=== PATIENT | male | born 1945 | race Caucasian/White ===

== ENCOUNTER 2016-10-28 20:05 | Emergency (ER) | payer MEDICARE, MEDICAID ==
[~2016-10-28] VITALS: Ht 182.9 cm; Wt 68.0 kg
[~2016-10-28 20:05] MED LIST: BACT800T5 PO; CARB25TA PO; OMEP20TA39 PO; RIVA13.3 TOPICAL; SERO25TA PO; THERTAB41; TRUSMIS52
[2016-10-28 20:12] VITALS: PULSE 67; RESP 16; O2SAT 98
[2016-10-28 20:20] VITALS: TEMP 97.8
[2016-10-28] MEDS ORDERED: SODIUM CHLOR 0.9% 1000 ML INJ 1,000 ML IV SCH (20:23)
[2016-10-28 20:26] VITALS: BP 130/77; RESP 14; O2SAT 97
[2016-10-28] MEDS ORDERED: SODIUM CHLORIDE 0.9% FLUSH 10 ML FLUSH IV FLUSH PRN (20:30)
[2016-10-28] MEDS ORDERED: PANTOPRAZOLE SODIUM 40 MG VIAL IVP ONE (20:30)
[2016-10-28] MEDS ORDERED: ONDANSETRON HCL 4 MG/2 ML VIAL IVP ONE (20:30)
--- NOTE | 2016-10-28 20:33 | PD ---
HPI Chief Complaint: GI Complaint Time Seen by Provider: 20:30 Travel History International Travel<30 days: No Contact w/Intl Traveler<30days: No Traveled to known affect area: No History of Present Illness HPI 71-year-old male presents to the ED via EMS from his [facility] with complaint of a single episode of dark, stringy emesis today. He is confused at baseline. On presentation he endorses mild upper abdominal pain. He denies nausea, fever, cough. His arrives and states that the patient "had a bad week this week." She states that he has been slowly declining. She states that she assessed the patient with meals every day except Saturday. She states during the course of the week he was leaning over and drooling, not eating very much. However she states that yesterday she took a meal from [employer] and he was able to eat the whole thing. He states that he recently began antibiotics and Robitussin for a chronic cough. She states that he is unable to take Robitussin and she wonders if maybe this was the cause of the vomiting today. PFSH Past Medical History Anxiety: Yes Depression: Yes Heart Rhythm Problems: Yes (BRADYCARDIA) Cancer: No Cardiovascular Problems: No Diminished Hearing: No Endocrine: No GERD: Yes Genitourinary: Yes (URI) Immune Disorder: No Kidney Stones: Yes Musculoskeletal: No Neurologic: Yes (ALZHEIMER'S) Parkinson's Disease: Yes Psychiatric: Yes (PSYCHOTIC DISORDER WITH DELUSIONS) Respiratory: No Past Surgical History Abdominal Surgery: No Cardiac Surgery: No Endocrine Surgery: No Eye Surgery: No Genitourinary Surgery: No Gynecologic Surgery: No Thoracic Surgery: No Social History Alcohol Use: No Tobacco Use: No Substance Use: No Allergies-Medications (Allergen,Severity, Reaction): Coded Allergies: Adderall (Verified Allergy, Intermediate, 10/28/16) Penicillin (Verified Allergy, Intermediate, 10/28/16) Requip (Verified Allergy, Intermediate, 10/28/16) Risperdal (Verified Allergy, Intermediate, 10/28/16) Reported Meds & Prescriptions Reported Meds & Active Scripts Active Protonix (Pantoprazole Sodium) 40 Mg Tab 40 Mg PO DAILY Bactrim DS (Sulfamethoxazole-Trimethoprim DS) 1 Tab Tab 1 Tab PO BID 7 Days Seroquel 25 mg (Quetiapine Fumarate) 25 Mg Tab 25 Mg PO QHS 30 Days Sinemet 25/100 (Carbidopa/Levodopa) 25 Mg/100 Mg Tab 1.5 Tab PO 5 TIMES A DAY 30 Days Trusheer Stockings 20-30M (Elastic Bandages & Supports) Stocking Mis Pack Reported Thermotabs (Oral Electrolytes) Tab Exelon Patch (Rivastigmine) 13.3 mg/24 hrs Patch 13.3 Mg TOPICAL DAILY Hm Omeprazole (Omeprazole) 20 Mg Tab 20 Mg PO DAILY Review of Systems Except as stated in HPI: all other systems reviewed are Neg Physical Exam Narrative GENERAL: Well-nourished, well-developed, thin, chronically ill appearing white male in no acute distress. SKIN: Focused skin assessment warm/dry. HEAD: Normocephalic. Atraumatic. EYES: No scleral icterus. No injection or drainage. PERRLA. EOMI. ENT: Small amount of dark material in the oropharynx and crusted around the lips. NECK: Supple, trachea midline. No JVD or lymphadenopathy. CARDIOVASCULAR: Regular rate and rhythm without murmurs, gallops, or rubs. RESPIRATORY: Breath sounds clear and equal bilaterally. No accessory muscle use. GASTROINTESTINAL: Abdomen soft, nondistended, active bowel sounds. Mild epigastric tenderness. MUSCULOSKELETAL: No cyanosis, or edema. BACK: Nontender without obvious deformity. No CVA tenderness. Data Data Last Documented VS Vital Signs Date Time Temp Pulse Resp B/P Pulse Ox O2 Delivery O2 Flow Rate FiO2 10/29/16 06:08 63 20 100 10/29/16 02:51 152/75 10/28/16 20:26 Room Air 10/28/16 20:20 97.8 Orders Complete Blood Count With Diff (10/28/16 20:23) Comprehensive Metabolic Panel (10/28/16 20:23) Lipase (10/28/16 20:23) Prothrombin Time / Inr (Pt) (10/28/16 20:23) Act Partial Throm Time (Ptt) (10/28/16 20:23) Iv Access Insert/Monitor (10/28/16 20:23) Ecg Monitoring (10/28/16 20:23) Oximetry (10/28/16 20:23) Ondansetron Inj (Zofran Inj) (10/28/16 20:30) Pantoprazole Inj (Protonix Inj) (10/28/16 20:30) Sodium Chlor 0.9% 1000 Ml Inj (Ns 1000 M (10/28/16 20:23) Sodium Chloride 0.9% Flush (Ns Flush) (10/28/16 20:30) Electrocardiogram (10/28/16 20:23) Chest, Single Ap (10/28/16 ) Abdomen, Upright Only (10/28/16 22:01) Labs Laboratory Tests Test 10/28/16 20:25 Prothrombin Time 11.2 SEC Prothromb Time International 1.0 RATIO Ratio Activated Partial 25.3 SEC Thromboplast Time Sodium Level 142 MEQ/L Potassium Level 4.1 MEQ/L Chloride Level 108 MEQ/L Carbon Dioxide Level 29.7 MEQ/L Anion Gap 4 MEQ/L Blood Urea Nitrogen 29 MG/DL Creatinine 0.95 MG/DL Estimat Glomerular Filtration 78 ML/MIN Rate Random Glucose 106 MG/DL Calcium Level 10.3 MG/DL Total Bilirubin 0.5 MG/DL Aspartate Amino Transf 12 U/L (AST/SGOT) Alanine Aminotransferase 9 U/L (ALT/SGPT) Alkaline Phosphatase 90 U/L Total Protein 6.5 GM/DL Albumin 3.5 GM/DL Lipase 297 U/L White Blood Count 12.9 TH/MM3 Red Blood Count 4.70 MIL/MM3 Hemoglobin 15.2 GM/DL Hematocrit 45.4 % Mean Corpuscular Volume 96.7 FL Mean Corpuscular Hemoglobin 32.4 PG Mean Corpuscular Hemoglobin 33.6 % Concent Red Cell Distribution Width 13.4 % Platelet Count 313 TH/MM3 Mean Platelet Volume 7.6 FL Neutrophils (%) (Auto) 85.5 % Lymphocytes (%) (Auto) 6.4 % Monocytes (%) (Auto) 6.5 % Eosinophils (%) (Auto) 1.2 % Basophils (%) (Auto) 0.4 % Neutrophils # (Auto) 11.0 TH/MM3 Lymphocytes # (Auto) 0.8 TH/MM3 Monocytes # (Auto) 0.8 TH/MM3 Eosinophils # (Auto) 0.2 TH/MM3 Basophils # (Auto) 0.1 TH/MM3 CBC Comment DIFF FINAL Differential Comment MDM Medical Decision Making Medical Screen Exam Complete: Yes Emergency Medical Condition: Yes Differential Diagnosis GI bleed versus GERD versus PUD versus biliary obstruction versus nausea and vomiting versus metabolic derangement versus dehydration versus other Narrative Course 71-year-old male presents to the ED via EMS from his [facility] with complaint of a single episode of dark, stringy emesis today. He is confused at baseline. On presentation he endorses mild upper abdominal pain. He denies nausea, fever, cough. The arrives and states that the patient has indeed been coughing and is currently taking antibiotics for a URI. Vitals reviewed. Physical exam reveals a chronically ill-appearing white male in no acute distress. There is a small amount of dark debris in his mouth. This was sampled and is guaiac negative. Patient's breathing easily, chest clear to auscultation bilaterally. Abdomen with mild epigastric tenderness to illness but otherwise unremarkable. Plenty of stool in the rectal vault also guaiac negative. IV was established. Patient was administered 1 L normal saline EKG: Rate 71, sinus rhythm. Normal axis. No ST changes. Reviewed by Dr. Gonsales. CXR: No acute cardiopulmonary disease per radiology read. Abdominal x-ray: Nonspecific bowel gas pattern, no free air. WBC 12.9, hemoglobin 15.2. BUN 29, creatinine 0.29. AST 12, ALT 9, lipase 297. No further episodes of vomiting in the ED. The patient was allowed to drink water through a straw and was able to swallow multiple times without incident. Per the patient's he is in his normal state. I don't think he needs to be admitted to the hospital. He'll be prescribed Protonix, instructed to discontinue omeprazole, follow up with the GI specialist and primary care this week. The is agreeable to this plan. The patient is stable and discharged home. [facility] Point of Care Internal Pos. & Neg. Controls: Passed Fecal Specimen Occult Blood: Negative Gastric Specimen Occult Blood: Negative Comment Sample of debris in the patient's mouth was used for gastric specimen. Diagnosis Primary Impression: Vomiting Qualified Code: R11.10 - Non-intractable vomiting, presence of nausea not specified, unspecified vomiting type Referrals: [facility] Additional Instructions: Rest, hydrate. Take Protonix as prescribed. Follow-up with a rayon tester this week. Return to the ED for worsening symptoms or any urgent or emergent medical condition. Scripts Pantoprazole (Protonix)40 Mg Tab40 Mg PO DAILY #30 TAB Ref 0 Prov:Levi Gonsales MD 10/28/16 Disposition: 01 DISCHARGE HOME Condition: Stable Birgit Martinez Oct 28, 2016 20:33
[2016-10-28 20:48] LABS: BASOPHIL # 0.1 TH/MM3 (0-0.2); BASOPHIL % 0.4 % (0.0-2.0); EOSINOPHIL # 0.2 TH/MM3 (0-0.4); EOSINOPHIL % 1.2 % (0.0-4.0); HEMATOCRIT 45.4 % (39.0-51.0); HEMO FLAGS DIFF FINAL; LYMPH % 6.4 % (9.0-44.0); LYMPHOCYTE # 0.8 TH/MM3 (1.0-4.8); MEAN CELL VOLUME 96.7 FL (80.0-100.0); MEAN CORPUSCULAR HEMOGLOBIN 32.4 PG (27.0-34.0); MEAN CORPUSCULAR HGB CONC 33.6 % (32.0-36.0); MONO % 6.5 % (0.0-8.0); NEUT % 85.5 % (16.0-70.0); PLATELET COUNT 313 TH/MM3 (150-450); RED CELL DISTRIBUTION WIDTH 13.4 % (11.6-17.2); WHITE BLOOD COUNT 12.9 TH/MM3 (4.0-11.0)
[2016-10-28 21:04] LABS: ALT (GPT) 9 U/L (12-78); ANION GAP 4 MEQ/L (5-15); AST (GOT) 12 U/L (15-37); BICARBONATE 29.7 MEQ/L (21.0-32.0); BLOOD UREA NITROGEN 29 MG/DL (7-18); CHLORIDE 108 MEQ/L (98-107); GLOMERULAR FILTRATION RATE 78 ML/MIN (>89); POTASSIUM 4.1 MEQ/L (3.5-5.1); SODIUM (NA) 142 MEQ/L (136-145)
[2016-10-28 21:08] LABS: ALKALINE PHOSPHATASE 90 U/L (45-117); TOTAL BILIRUBIN ADULT 0.5 MG/DL (0.2-1.0)
[2016-10-28 21:09] LABS: APTT (PATIENT) 25.3 SEC (24.3-30.1); PROTHROMBIN TIME - PATIENT 11.2 SEC (9.8-11.6)
[2016-10-28] MEDS ORDERED: PROT40TA PO (22:27)
--- NOTE | 2016-10-28 23:04 | RADRPT ---
EXAM DATE/TIME: 10/28/2016 22:03 [facility] COMPARISON: CHEST SINGLE AP, November 01, 2015, 20:11. INDICATIONS : Nausea and vomiting. MEDICAL HISTORY : Renal calculi. Parkinson's SURGICAL HISTORY : None. ENCOUNTER: Initial ACUITY: 1 day PAIN SCORE: Non-responsive. LOCATION: Bilateral chest FINDINGS: Single AP view of the chest. Low lung volumes. The lungs are clear. Cardiomediastinal silhouette with in normal limits. No evidence of pleural effusion or pneumothorax. CONCLUSION: No acute cardiopulmonary disease identified. Samson Sullivan MD on October 28, 2016 at 23:02 Board Certified Radiologist. This report was verified electronically.
--- NOTE | 2016-10-28 23:11 | RADRPT ---
EXAM DATE/TIME: 10/28/2016 22:26 [facility] COMPARISON: No previous studies available for comparison. INDICATIONS : Nausea and vomiting. MEDICAL HISTORY : Renal calculi. Parkinson's SURGICAL HISTORY : None. ENCOUNTER: Initial ACUITY: 1 day PAIN SCORE: Non-responsive. LOCATION: Bilateral Abdomen FINDINGS: Single upright view of the abdomen. No evidence of free air. Gas and stool scattered in the colon. Co latoya is mildly distended. Scattered gas and nondilated small bowel. CONCLUSION: Nonspecific bowel gas pattern. No evidence of free air. Samson Sullivan MD on October 28, 2016 at 23:08 Board Certified Radiologist. This report was verified electronically.
[2016-10-29 02:51] VITALS: BP 152/75; PULSE 60; RESP 20; O2SAT 98
[2016-10-29 06:08] VITALS: PULSE 63; RESP 20; O2SAT 100
--- NOTE | 2016-10-29 16:49 | EKG ---
Date Performed: 10/28/2016 Time Performed: 20:17:46 PTAGE: 71 years EKG: Sinus rhythm LEFT ANTERIOR FASCICULAR BLOCK ABNORMAL ECG PREVIOUS TRACING : 11/01/2015 21.00 Compared to prior tracing no significant change DOCTOR: Khalida Anderson Interpretating Date/Time 10/29/2016 16:46:36
== END 2016-10-29 08:11 | disposition home or self-care (01) ==
LOC: NEPC 20:05 → NEPD 10-29 08:11
DX: R11.10 Vomiting, unspecified (principal); R10.10 Upper abdominal pain, unspecified; R94.31 Abnormal electrocardiogram [ECG] [EKG]; G30.9 Alzheimer's disease, unspecified; G20 Parkinson's disease; K21.9 Gastro-esophageal reflux disease without esophagitis
CPT/HCPCS: 71010; 74000; 80053; 83690; 85025; 85610; 85730; 93005; 96361; 96374; 96375; 99284; C9113; J2405; J7030